=== PATIENT | male | born 1995 | race Caucasian/White ===

== ENCOUNTER 2018-04-25 17:40 | Emergency (ER) | payer MEDICAID ==
[2018-04-25 17:51] VITALS: BP 150/90; PULSE 63; RESP 18; TEMP 98.6; O2SAT 100
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
== END 2018-04-25 20:31 | disposition home or self-care (01) ==
LOC: C.ER 17:40
DX: S09.92XA Unspecified injury of nose, initial encounter (principal); Y09 Assault by unspecified means